=== PATIENT | female | born 1990 | race African-American/Black ===

== ENCOUNTER 2016-04-10 14:30 | Outpatient (RCR) | payer MEDICARE, OTHER | END 2016-04-17 | disposition home or self-care (01) | LOC: PTY 14:30 | DX: S81.809A Unspecified open wound, unspecified lower leg, initial encounter (principal); X58.XXXA Exposure to other specified factors, initial encounter; Y93.9 Activity, unspecified; Y92.9 Unspecified place or not applicable | CPT/HCPCS: 97110; 97140; 97163; 97535; G8978; G8979 ==

== ENCOUNTER 2016-04-25 13:00 | Outpatient (RCR) | payer MEDICARE, OTHER | END 2016-05-18 | disposition home or self-care (01) | LOC: PTY 13:00 | DX: S81.809A Unspecified open wound, unspecified lower leg, initial encounter (principal); X58.XXXA Exposure to other specified factors, initial encounter; Y93.9 Activity, unspecified; Y92.9 Unspecified place or not applicable; R26.81 Unsteadiness on feet | CPT/HCPCS: 97035; 97140; G0283 ==

== ENCOUNTER 2016-06-20 13:20 | Outpatient (RCR) | payer MEDICARE, OTHER | END 2016-07-18 | disposition home or self-care (01) | LOC: PTY 13:20 | DX: R26.81 Unsteadiness on feet (principal); M25.561 Pain in right knee; S81.809D Unspecified open wound, unspecified lower leg, subsequent encounter | CPT/HCPCS: 97035; 97140; G0283; G8979; G8980 ==

== ENCOUNTER 2016-08-15 14:04 | Outpatient (RCR) | payer MEDICARE, OTHER | END 2016-08-17 | disposition home or self-care (01) | LOC: WCC 14:04 | DX: L97.929 Non-pressure chronic ulcer of unspecified part of left lower leg with unspecified severity (principal); L73.2 Hidradenitis suppurativa | CPT/HCPCS: G0463 ==

== ENCOUNTER 2016-08-27 11:30 | Outpatient (RCR) | payer MEDICARE, OTHER | END 2016-09-17 | disposition home or self-care (01) | LOC: WCC 11:30 | DX: L97.929 Non-pressure chronic ulcer of unspecified part of left lower leg with unspecified severity (principal); L73.2 Hidradenitis suppurativa | CPT/HCPCS: G0463 ==

== ENCOUNTER 2016-10-15 09:30 | Outpatient (RCR) | payer MEDICARE, OTHER | END 2016-10-18 | disposition home or self-care (01) | LOC: WCC 09:30 | DX: L97.822 Non-pressure chronic ulcer of other part of left lower leg with fat layer exposed (principal); Z82.49 Family history of ischemic heart disease and other diseases of the circulatory system; L73.2 Hidradenitis suppurativa | CPT/HCPCS: 87070; 87205; G0463 ==

== ENCOUNTER 2016-12-17 10:13 | Outpatient (RCR) | payer MEDICARE, OTHER | END 2016-12-18 | disposition home or self-care (01) | LOC: WCC 10:13 | DX: L97.822 Non-pressure chronic ulcer of other part of left lower leg with fat layer exposed (principal); L97.821 Non-pressure chronic ulcer of other part of left lower leg limited to breakdown of skin | CPT/HCPCS: G0463 ==

== ENCOUNTER 2017-01-22 15:13 | Outpatient (RCR) | payer MEDICARE, OTHER | END 2017-02-17 | disposition home or self-care (01) | LOC: PTY 15:13 | DX: S89.82XD Other specified injuries of left lower leg, subsequent encounter (principal) | CPT/HCPCS: 97110; 97140; 97162; G8978; G8979 ==

== ENCOUNTER 2017-05-20 09:46 | Outpatient (RCR) | payer MEDICARE, OTHER ==
[~2017-05-20] VITALS: Ht 170.2 cm; Wt 65.8 kg
[2017-05-30] MEDS ORDERED: Lidocaine 2% 20mg/ml/EPI 0.01mg/ml 20ml IV ONE (11:45)
== END 2017-06-17 | disposition home or self-care (01) ==
LOC: WCC 09:46
DX: L97.821 Non-pressure chronic ulcer of other part of left lower leg limited to breakdown of skin (principal); L97.822 Non-pressure chronic ulcer of other part of left lower leg with fat layer exposed
CPT/HCPCS: 11042; 15271; 87070; 87205; G0463; Q4133

== ENCOUNTER 2017-05-20 11:10 | Outpatient (CLI) | payer MEDICARE, OTHER ==
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
== END 2017-05-20 13:10 | disposition home or self-care (01) ==
LOC: MRI 11:10
DX: M86.9 Osteomyelitis, unspecified (principal); R60.0 Localized edema; L97.929 Non-pressure chronic ulcer of unspecified part of left lower leg with unspecified severity

== ENCOUNTER 2017-08-27 13:00 | Outpatient (RCR) | payer MEDICARE, OTHER | END 2017-09-17 | disposition home or self-care (01) | LOC: PTY 13:00 | DX: S81.809D Unspecified open wound, unspecified lower leg, subsequent encounter (principal) | CPT/HCPCS: 97110; 97162; G8978; G8979 ==

== ENCOUNTER 2018-11-10 09:38 | Outpatient (RCR) | payer MEDICARE, OTHER | END 2018-11-17 | disposition home or self-care (01) | LOC: WCC 09:38 | DX: L98.492 Non-pressure chronic ulcer of skin of other sites with fat layer exposed (principal); L97.821 Non-pressure chronic ulcer of other part of left lower leg limited to breakdown of skin; L73.2 Hidradenitis suppurativa | CPT/HCPCS: 11042; 87070; 87181; 87205 ==

== ENCOUNTER 2018-12-08 10:07 | Outpatient (RCR) | payer MEDICARE, OTHER | END 2018-12-18 | disposition home or self-care (01) | LOC: WCC 10:07 | DX: L97.822 Non-pressure chronic ulcer of other part of left lower leg with fat layer exposed (principal); L98.492 Non-pressure chronic ulcer of skin of other sites with fat layer exposed; L73.2 Hidradenitis suppurativa | CPT/HCPCS: 11042 ==

== ENCOUNTER 2018-12-22 10:24 | Outpatient (RCR) | payer MEDICARE, OTHER | END 2019-01-17 | disposition home or self-care (01) | LOC: WCC 10:24 | DX: L97.822 Non-pressure chronic ulcer of other part of left lower leg with fat layer exposed (principal); L98.492 Non-pressure chronic ulcer of skin of other sites with fat layer exposed; L73.2 Hidradenitis suppurativa | CPT/HCPCS: 11042 ==

== ENCOUNTER 2019-01-26 09:21 | Outpatient (RCR) | payer MEDICARE, OTHER ==
[~2019-01-26] VITALS: Ht 170.2 cm; Wt 68.5 kg
[2019-01-27] MEDS ORDERED: Lidocaine 2% 20mg/ml/EPI 0.01mg/ml 20ml IV ONE (10:15)
== END 2019-02-17 | disposition home or self-care (01) ==
LOC: WCC 09:21
DX: L97.822 Non-pressure chronic ulcer of other part of left lower leg with fat layer exposed (principal); L98.492 Non-pressure chronic ulcer of skin of other sites with fat layer exposed; L73.2 Hidradenitis suppurativa
CPT/HCPCS: 11042

== ENCOUNTER 2019-05-11 09:01 | Outpatient (RCR) | payer MEDICARE, OTHER | END 2019-05-19 | disposition home or self-care (01) | LOC: WCC 09:01 | DX: L97.822 Non-pressure chronic ulcer of other part of left lower leg with fat layer exposed (principal); L98.491 Non-pressure chronic ulcer of skin of other sites limited to breakdown of skin; L73.2 Hidradenitis suppurativa; Z79.899 Other long term (current) drug therapy | CPT/HCPCS: 11042 ==

== ENCOUNTER 2019-06-15 09:40 | Outpatient (RCR) | payer MEDICARE, OTHER | END 2019-06-18 | disposition home or self-care (01) | LOC: WCC 09:40 | DX: L97.822 Non-pressure chronic ulcer of other part of left lower leg with fat layer exposed (principal); L98.491 Non-pressure chronic ulcer of skin of other sites limited to breakdown of skin; L98.492 Non-pressure chronic ulcer of skin of other sites with fat layer exposed; L73.2 Hidradenitis suppurativa | CPT/HCPCS: 11042 ==

== ENCOUNTER 2019-08-03 08:54 | Outpatient (RCR) | payer MEDICARE, OTHER | END 2019-08-18 | disposition home or self-care (01) | LOC: WCC 08:54 | DX: L97.822 Non-pressure chronic ulcer of other part of left lower leg with fat layer exposed (principal); L98.491 Non-pressure chronic ulcer of skin of other sites limited to breakdown of skin; L98.492 Non-pressure chronic ulcer of skin of other sites with fat layer exposed; L73.2 Hidradenitis suppurativa | CPT/HCPCS: 11042 ==

== ENCOUNTER 2019-12-21 15:11 | Outpatient (RCR) | payer MEDICARE, BC | END 2020-01-18 | disposition home or self-care (01) | LOC: WCC 15:11 | DX: L98.492 Non-pressure chronic ulcer of skin of other sites with fat layer exposed (principal); L97.822 Non-pressure chronic ulcer of other part of left lower leg with fat layer exposed | CPT/HCPCS: 11042; 87070; 87181; 87205 ==